=== PATIENT | male | born 1985 | race Native Hawaiian/Other Pacific Islander ===

== ENCOUNTER 2023-01-26 16:59 | Outpatient (CLI) | payer OTHER ==
[2023-01-26 17:49] LABS: PLATELET COUNT 295 K/uL (142-355)
[2023-01-26 18:17] LABS: POTASSIUM 4.3 mmol/L (3.6-5.2)
== END 2023-01-26 19:11 | disposition home or self-care (01) ==
LOC: LABW 16:59
PROVIDERS: ATTEND Internal Medicine
DX: Z11.3 Encounter for screening for infections with a predominantly sexual mode of transmission (principal)
CPT/HCPCS: 36415; 80053; 80061; 80074; 82550; 83036; 84436; 84443; 84550; 85027; 85652; 86038; 86140; 86200; 86592; 87535; G0432